=== PATIENT | female | born 1965 | race Caucasian/White ===

== ENCOUNTER 2017-11-27 20:05 | Emergency (ER) | payer SELFPAY ==
[~2017-11-27] VITALS: Ht 172.7 cm; Wt 69.0 kg
[2017-11-27 22:05] VITALS: BP 151/62
[2017-11-27] MEDS ORDERED: ACETAMINOPHEN 325MG TABLET PO ONE (22:30)
== END 2017-11-27 22:47 | disposition home or self-care (01) ==
LOC: ER 20:05
DX: L30.4 Erythema intertrigo (principal); E11.65 Type 2 diabetes mellitus with hyperglycemia; F17.200 Nicotine dependence, unspecified, uncomplicated; Z98.890 Other specified postprocedural states
CPT/HCPCS: 99283; Z7610

== ENCOUNTER 2019-01-14 20:56 | Emergency (ER) | payer SELFPAY ==
[~2019-01-14] VITALS: Ht 172.7 cm; Wt 69.0 kg
[2019-01-14] MEDS ORDERED: BACITRACIN ZINC OINT UDPKT TOP ONE (21:45)
[2019-01-14] MEDS ORDERED: LIDOCAINE HCL/PF 1% 10 MG/ML 5ML VIAL IJ ONE (21:45)
[2019-01-14] MEDS ORDERED: KETOROLAC 60MG/2ML VIAL IM STA (22:33)
[2019-01-14] MEDS ORDERED: BACITRACIN 15GM TUBE TOP STA (23:19)
[2019-01-15 00:17] VITALS: BP 135/72
== END 2019-01-15 00:19 | disposition home or self-care (01) ==
LOC: ER 20:56
DX: L02.214 Cutaneous abscess of groin (principal); E11.9 Type 2 diabetes mellitus without complications; Z98.890 Other specified postprocedural states
CPT/HCPCS: 10060; 96372; 99283; J1885; J3490; Z7610